=== PATIENT | female | born 1985 | race Caucasian/White ===

== ENCOUNTER 2018-08-07 10:58 | Emergency (ER) | payer BC, OTHER ==
--- NOTE | 2018-08-07 12:17 | UC ---
Complaint Female HPI - HPI Summary HPI Summary: 32 y/o female presents to the urgent care c/o acute constant pelvic pain since this morning when she woke up. Pt reports pain is mild on B/L side of suprapubic area, cramping in character 3/10. Aggravated by walking and associated w/ urinary frequency. Pt has not taking anything to alleviate symptoms. Pt states PMHX of PCOS, but she is not taking Metformin. LMP: 2017 w/ irregular menstrual cycles. Pt denies fever, lower back pain, flank pain , vaginal discharge, Hx of STD's, SOB, chest pain, N/V/D, constipation, hematuria. Pt states she is trying to get again and her [employer] Dr SOLIS did an pelvic ultrasound on 05/12 and it was negative. - History Of Current Complaint Chief Complaint: UCGU Stated Complaint: LOWER ABD PAIN Time Seen by Provider: 08/07/18 12:16 Hx Obtained From: Patient Hx Last Menstrual Period: 05/27/2018 ?: No - Pt w/ irregular menstrual cycles Onset/Duration: Gradual Onset, Lasting Hours - 10 hrs, Still Present Timing: Intermittent Severity Initially: Mild Severity Currently: Mild Pain Intensity: 3 Pain Scale Used: 0-10 Numeric Character: Cramping Aggravating Factor(s): Movement - walking Alleviating Factor(s): Position - sitting or laying down Associated Signs And Symptoms: Negative: Fever, Back Pain, Vaginal Discharge, Nausea, Vomiting(# Of Episodes =), Genital Swelling, Genital Blisters Related Hx: - 1, Para - 1 - Risk Factors Ovarian Torsion Risk Factor: Ovarian Cysts/Tumors - PMHX of PCOS - Allergies/Home Medications Allergies/Adverse Reactions: Allergies Allergy/AdvReac Type Severity Reaction Status Date / Time No Known Allergies Allergy Verified 08/07/18 11:18 PMH/Surg Hx/FS Hx/Imm Hx Previously Healthy: Yes Other GI/ History: PCOS - Surgical History Surgical History: Yes Surgery Procedure, Year, and Place: , 2010, [place]; Pilonidal Cystectomy, ~2008, [place] - Family History Known Family History: Positive: Hypertension Family History: MOTHER DEGENDERATIVE DISK DISEASE C-SPINE, dyslipidemia - Social History Occupation: Employed Full-time Lives: With Family Alcohol Use: Rare Substance Use Type: None Smoking Status (MU): Heavy Every Day Tobacco Smoker Type: Cigarettes Amount Used/How Often: 1 PPD Length of Time of Smoking/Using Tobacco: Since Age 9 Household Exposure Type: Cigarettes Review of Systems Constitutional: Negative Skin: Negative Eyes: Negative ENT: Negative Respiratory: Negative Cardiovascular: Negative Gastrointestinal: Negative Genitourinary: Frequency, Other - B/L pelvic pain Motor: Negative Neurovascular: Negative Musculoskeletal: Negative Neurological: Negative Psychological: Negative Is Patient Immunocompromised?: No All Other Systems Reviewed And Are Negative: Yes Physical Exam - Summary Physical Exam Summary: Vital signs: reviewed General: well developed, well nourished obese female sitting in the examining table w/o any acute distress. Head: Normocephalic, no lesions. Eyes: PERRLA, EOM's full, conjunctiva clear, fundi grossly normal. Ears: EAC's clear, TM's normal. Nose: Mucosa normal, no obstruction. Throat: Clear, no exudates, no lesions. Neck: Supple, no masses, no thyromegaly, no bruits. Chest: Lungs clear, no rales, no rhonchi, no wheezes. Heart: RR, no murmurs, no rubs, no gallops. Abdomen: Soft, no tenderness, no masses, BS normal. Pelvic: I was assisted by Nurse Felipe. External genitalia within normal limits. There is no lesions there is no masses noted. Speculum exam: The vaginal francis are within normal limits w/ mderated white vaginal discharge w/ fishy odor, no the lesions or rashes. The cervix is closed with no lesions or masses. There is no CMT's, and no adnexal masses. Sample sent to Lab Affirm panel. Rectal: No lesions, no hemorrhoids, Back: Normal curvature, no tenderness. Extremities: FROM, no deformities, no edema, no erythema. Neuro: Physiological, no localizing findings. Skin: Normal, no rashes, no lesions noted. Triage Information Reviewed: Yes Vital Signs: Initial Vital Signs Temp 97.2 F 08/07/18 11:16 Pulse 76 08/07/18 11:16 Resp 18 08/07/18 11:16 BP 134/74 08/07/18 11:16 Pulse Ox 99 08/07/18 11:16 Complaint Female Dx - Course Course Of Treatment: 32 y/o female presents to the urgent care c/o acute constant pelvic pain since this morning when she woke up. Pt reports pain is mild on B/L side of suprapubic area, cramping in character 3/10. Aggravated by walking and associated w/ urinary frequency. Pt has not taking anything to alleviate symptoms. Pt states PMHX of PCOS, but she is not taking Metformin. LMP : 05/27/2018 w/ irregular menstrual cycles. Pt denies fever, lower back pain, flank pain, vaginal discharge, Hx of STD's, SOB, chest pain, N/V/D, constipation , hematuria. Pt states last PAP was negative last year. Pt states she is trying to get again and her [employer] Dr SOLIS did an pelvic ultrasound on 05/12 and it was negative. Hx obtained. I was assisted by Nurse Felipe for Pelvic exam: The vaginal francis are within normal limits w/ moderated white vaginal discharge w/ fishy odor, no lesions or rashes. The cervix is closed with no lesions or masses. There is no CMT's, and no adnexal masses. Sample sent to Lab for affirm panel. Pt will be notified of any abnormality. Pt declines STD's screening. UA:negative. test:negative. Pt given Ibuprofen PO to alleviate pelvic pain. Transvaginal US ordered to r/o any abnormality since Pt w / PCOS, Impression:Findings consistent w/ PCOS on both ovaries. Pt w/o her menstrual cycle for the past 2 months. pt given Ibuprofen PO to alleviate pelvic pain. Pt tolerated well medication and pain decrease. Pt Rx ibuprofen PO and Metrogel vaginal creaam as directed below. Pt strongly advised if pelvic pain worsen despite taking Ibuprofen Po to go immediately to the ER for further management. Otherwise f/u w/ her [employer] [facility] DR SOLIS for further management on her PCOS since she stopped taking Metformin PO. d/c instructions explained. Pt understood and agreed with plan of care. - Differential Dx/Diagnosis Differential Diagnosis/HQI/PQRI: Cervicitis, Ovarian Cyst, Ovarian Torsion, Pelvic Inflammatory Disease, , Renal Colic, Sexually Transmitted Disease, Ureteral Stone, Urinary Tract Infection Provider Diagnoses: 1- Acute pelvic pain. 2- Polycystic ovary syndrome. 3- Bacterial Vaginosis Discharge - Sign-Out/Discharge Documenting (check all that apply): Patient Departure - d/c home All imaging exams completed and their final reports reviewed: Yes - Discharge Plan Condition: Stable Disposition: HOME Prescriptions: Ibuprofen TAB* [Motrin TAB* 800 MG] 800 mg PO Q6H PRN #30 tab PRN Reason: pelvic pain metroNIDAZOLE VAGINAL 0.75%* 1 applic VAGINAL BEDTIME #1 bartolome Patient Education Materials: Bacterial Vaginosis (ED), Pelvic Pain in Women (ED ) Referrals: Chris,In-[facility] [Medical Doctor] - 3 Days Shirin Roe MD [Primary Care Provider] - 3 Days Additional Instructions: 1-Please f/u with [facility] Dr In [place] for further management of your PCOS and pelvic pain since you stopped taking the Metformin PO. 2- Please apply Metronidazole gel as directed to alleviate Bactrail Vaginosis.. 3- Specimen were sent to lab, if anything abnormal you will receive a call from us for further treatment. 4-If symptoms worsen and you develop severe pelvic pain despite taking ibuprofen PO q6-8hrs prn after meals please go immediately to the ER for further management. - Billing Disposition and Condition Condition: STABLE Disposition: Home
[2018-08-07] MEDS ORDERED: Ibuprofen TAB* 400 MG PO ONE (12:39)
[2018-08-07 13:50] VITALS: BP 127/72
== END 2018-08-07 14:48 | disposition home or self-care (01) ==
LOC: UCCORT 10:58
DX: E28.2 Polycystic ovarian syndrome (principal); N76.0 Acute vaginitis; F17.210 Nicotine dependence, cigarettes, uncomplicated
CPT/HCPCS: 76830; 81003; 84702; 87480; 87510; 99213; A9270-GY; G0463